=== PATIENT | male | born 1955 | race Caucasian/White ===

== ENCOUNTER 2016-06-04 07:16 | Day surgery (SDC) | payer OTHER ==
[2016-05-29 14:45] LABS: Basophils # (auto) 0 uL; Basophils % (auto) 0.4 % (0.0-2.0); Eosinophils # (auto) 0.2 uL; Eosinophils % (auto) 2.5 % (0.0-7.0); Hematocrit 44.4 % (41.0-53.0); Hemoglobin 14.7 g/dL (13.5-17.5); Lymphocytes # (auto) 2.3 uL; Mean Corpuscular Hemoglobin 30.7 pg (28.0-32.0); Mean Corpuscular Hgb Conc. 33.1 g/dL (32.0-36.0); Mean Corpuscular Volume 92.7 fL (80.0-100.0); Mean Platelet Volume 8.6 fL (7.4-10.4); Monocytes # (auto) 0.7 uL; Monocytes % (auto) 8.5 % (0.0-12.0); Neutrophils # (auto) 5.5 uL; Neutrophils % (auto) 62.6 % (37.0-80.0); Platelet Count (auto) 217 10^3/uL (140-450); White Blood Cell 8.7 10^3/uL (4.4-10.8)
[2016-05-29 14:59] LABS: Urine Bilirubin Negative (Negative); Urine Blood Negative /uL (Negative); Urine Color Colorless (Yellow); Urine Glucose Normal (Normal); Urine Ketone Negative (Negative); Urine Nitrite Negative (Negative); Urine RBC <1 /hpf (0 - 3); Urine Urobilinogen Normal (Negative); Urine pH 6.5 (5.0-8.0)
[2016-05-29 15:04] LABS: INR 1.04 (0.9-1.15); Partial Thromboplastin Time 29.6 sec (22.64-33.71); Prothrombin Time 10.7 sec (9.37-12.3)
[2016-05-29 15:09] LABS: Albumin 4.3 g/dL (3.4-5.0); BUN/Creatinine Ratio 18.4; Bilirubin, Total 1.1 mg/dL (0.2-1.0); Calcium 9.2 mg/dL (8.5-10.1); Potassium 3.3 mmol/L (3.5-5.1); Total Protein 8.2 g/dL (6.4-8.2)
[~2016-06-04] VITALS: Ht 165.1 cm; Wt 99.8 kg
[~2016-06-04 07:16] MED LIST: AMLO10TA2 PO; ASPI-231 PO; ATOR10TA PO; ESOM20CA PO; LISI40TA PO; MELO-85 PO; PRA1C PO; PREG75CA PO; SERT-160 PO; TOLT2CAP7 PO; TRIATAB3 PO
[2016-06-04] MEDS ORDERED: ceFAZolin 1GM VL ONE (08:36)
[2016-06-04] MEDS ORDERED: BUPIVACAINE 0.75% INJ 10ML MPV SDV IJ ONE (08:36)
[2016-06-04] MEDS ORDERED: CLINDAMYCIN 600MG IV 50 ML IV ONE (09:31)
[2016-06-04] MEDS ORDERED: MIDAZOLAM HCL 1MG/1ML-2 ML VIAL ONE (10:06)
[2016-06-04] MEDS ORDERED: fentaNYL CITRATE 100 MCG/2 ML VL ONE (10:06)
[2016-06-04] MEDS ORDERED: PROPOFOL 10 MG/ML 20 ML IV ONE (10:07)
[2016-06-04] MEDS ORDERED: ePHEDrine SULFATE 50 MG/ML AMP IV PRN (10:45)
[2016-06-04] MEDS ORDERED: hydrALAZINE HCL 20 MG/ML VL IV PRN (10:45)
[2016-06-04] MEDS ORDERED: ONDANSETRON HCL 4 MG/2 ML VIAL IV ONE (10:45)
[2016-06-04] MEDS ORDERED: HYDROmorphone HCL 2 MG/ML VL IV PRN (10:45)
[2016-06-04 11:10] VITALS: BP 116/73
== END 2016-06-04 11:20 | disposition home or self-care (01) ==
LOC: SUR 07:16
PROVIDERS: ATTEND Podiatrist Foot & Ankle Surgery
DX: M72.2 Plantar fascial fibromatosis (principal); E66.9 Obesity, unspecified; C61 Malignant neoplasm of prostate; Z90.49 Acquired absence of other specified parts of digestive tract
CPT/HCPCS: 20551; 28060; 36415; 80053; 81001; 85025; 85610; 85730; 88304; J0690; J2250; J2704; J3010; J3490; Q4139